=== PATIENT | female | born 1990 | race Two or more races ===

== ENCOUNTER 2021-11-16 14:12 | Emergency (ER) | payer MEDICAID, OTHER ==
[~2021-11-16] VITALS: Ht 167.6 cm; Wt 190.0 kg
[2021-11-16 14:29] VITALS: BP 152/95
== END 2021-11-16 14:23 | disposition left against medical advice (07) ==
LOC: EDBD 14:12 → ER 14:12
DX: F41.9 Anxiety disorder, unspecified (principal); Z53.21 Procedure and treatment not carried out due to patient leaving prior to being seen by health care provider